=== PATIENT | male | born 1980 | race Caucasian/White ===

== ENCOUNTER 2020-05-12 10:00 | Inpatient (IN) | payer BC ==
[2020-05-05 14:26] LABS: BASOPHILS # (AUTO) 0.1 X10'3 (0-0.2); BASOPHILS % (AUTO) 0.9 % (0-1); EOSINOPHILS # (AUTO) 0.1 X10'3 (0-0.9); EOSINOPHILS % (AUTO) 1.4 % (0-6); LYMPHOCYTES # (AUTO) 3.3 X10'3 (1.1-4.8); LYMPHOCYTES % (AUTO) 30.7 % (21-51); MEAN CORPUSCULAR HEMOGLOBIN 29.1 PG (27.0-31.0); MEAN CORPUSCULAR HGB CONC 33.9 g/dL (33.0-36.5); MEAN CORPUSCULAR VOLUME 85.9 FL (78-98); MEAN PLATELET VOLUME 9.1 FL (7.4-10.4); MONOCYTES # (AUTO) 0.7 X10'3 (0-0.9); MONOCYTES % (AUTO) 6.1 % (2-12); NEUTROPHILS # (AUTO) 6.5 X10'3 (1.8-7.7); NEUTROPHILS % (AUTO) 60.9 % (42-75); PRE OP HEMOGLOBIN 15.2 g/dL (14.0-17.9); PRE OP PLATELET COUNT 234 X10'3 (140-440); RED BLOOD COUNT 5.23 X10'6 (4.70-6.10)
[2020-05-05 14:40] LABS: ALBUMIN 3.9 G/DL (3.4-5.0); ALBUMIN/GLOBULIN RATIO 1.2 (1.1-1.5); ALKALINE PHOSPHATASE 116 IU/L (46-116); BLOOD UREA NITROGEN 17 MG/DL (7-18); BUN/CREATININE RATIO 14.9 (5.4-32.0); CALCIUM 8.6 MG/DL (8.5-10.1); CHLORIDE 105 MMOL/L (99-107); CREATININE 1.14 MG/DL (0.60-1.10); PRE OP ALT 41 U/L (30-65); PRE OP ANION GAP 6 (8-16); PRE OP AST 18 U/L (10-37); PRE OP BILIRUB, TOTAL 0.3 MG/DL (0.0-1.0); PRE OP GLUCOSE 105 MG/DL (70-104); PRE OP POTASSIUM 3.7 MMOL/L (3.4-5.1); PRE OP SODIUM 139 MMOL/L (135-145); TOTAL CARBON DIOXIDE 27.8 MMOL/L (24-32); TOTAL PROTEIN 7.2 G/DL (6.4-8.2); eGFR 70 ML/MIN
[~2020-05-12] VITALS: Ht 177.8 cm; Wt 113.4 kg
[2020-05-12] VITALS (17 sets, daily range): BP systolic 98–182; BP diastolic 65–108
[~2020-05-12 10:00] MED LIST: DILT180C53 PO; PREG100C PO; cefazolin/dext.iso 2gm/50ml 50 ML IV ONE; famotidine 20mg tablet PO ONE; ringers solution, lacted 1,000 ML IV SCH; tranexamic acid inj. 1,100 MG in normal saline 100ml IV soln 100 ML IV ONE; vancomycin 1,500 MG in NS 300ml IV soln IV ONE
[2020-05-12] MEDS ORDERED: famotidine 10mg tablet PO ONE (10:15)
[2020-05-12] MEDS ORDERED: ketorolac trometh. 30mg/ml inj. ONE (12:02)
[2020-05-12] MEDS ORDERED: ROPIVAcaine 0.5% (5mg/ml) 30ml vial ONE ×2 (12:02→15:28)
[2020-05-12] MEDS ORDERED: tetracaine 1% (10mg/ml) pres. free inj. ONE (12:54)
[2020-05-12] MEDS ORDERED: fentaNYL/PF 50MCG/1 ML 2ML syringe ONE (12:55)
[2020-05-12] MEDS ORDERED: MIDAZolam 1mg/ml 10ml vial ONE (12:55)
[2020-05-12] MEDS ORDERED: proCHLORperazine 10 MG/2 ml inj IV PRN (14:35)
[2020-05-12] MEDS ORDERED: morphine 2 MG/ML inj. syringe IV PRN (14:35)
[2020-05-12] MEDS ORDERED: ringers solution, lacted 1,000 ML IV SCH (14:35)
[2020-05-12] MEDS ORDERED: ondansetron/PF 4mg/2ml inj IV PRN ×2 (14:35→15:55)
[2020-05-12] MEDS ORDERED: ROPIVAcaine 0.2%/PF PUMP/bolus 550 ML ADDCANAL SCH (14:35)
[2020-05-12] MEDS ORDERED: morphine 4 MG/ML inj SYRINge IV PRN (14:35)
[2020-05-12] MEDS ORDERED: ROPIVAcaine 0.2% (10 MG/5 ML) BOLUS INJECTION ADDCANAL PRN (14:35)
[2020-05-12] MEDS ORDERED: meperidine/PF 25mg/ml syringe IV PRN ×3 (14:35)
[2020-05-12] MEDS ORDERED: propofol inj 20 ML IV ONE ×2 (15:18→15:19)
--- NOTE | 2020-05-12 15:50 | NUR ---
Received from OR via , accompanied by Anesthesiologist DR JEAN and report given by Anesthesiolgist. AWAKE AND LUIS ANTONIO PAIN. VITALS STABLE. DRESSING DI. SENSATION JUST ABOVE THE HIPS. PEREZ WITH CLEAR URINE.
[2020-05-12] MEDS ORDERED: oxyCODONE IR 5mg (immed. release) tablet PO PRN (15:55)
[2020-05-12] MEDS ORDERED: bisacodyl 10mg suppository rectal RC PRN (15:55)
[2020-05-12] MEDS ORDERED: HYDROmorphone 1 mg/ml syringe IV PRN (15:55)
[2020-05-12] MEDS ORDERED: acetaminophen 325mg tablet PO PRN (15:55)
[2020-05-12] MEDS ORDERED: diphenhydrAMINE 25mg capsule PO PRN ×2 (15:55)
[2020-05-12] MEDS ORDERED: magnesium hydroxide 30ml (MOM) UD suspension PO PRN (15:55)
[2020-05-12] MEDS ORDERED: HYDROmorphone inj. 0.5 MG/0.5 ML DISP.SYRIN IV PRN (15:55)
[2020-05-12] MEDS ORDERED: ceFAZolin 1GM/D5W- ADD-VANTAGE 50 ML IV SCH (16:00)
[2020-05-12] MEDS: pregabalin 75mg capsule PO SCH ×2 (16:00→23:37)
--- NOTE | 2020-05-12 16:50 | NUR ---
Report called to receiving nurse. Transferred via BED Belongings . Special Issues communicated to receiving nurse. AWAKE AND ORIENTED. VITALS STABLE. DRESSING DI. LUIS ANTONIO PAIN. TO ORTHO RM [id number] AT THIS TIME.
--- NOTE | 2020-05-12 17:00 | NUR ---
Received report from SOFY Hagan in recovery and patient arrived to floor. pt reports no pain at this time, Post op vitals started, SCD's on, LR infusing at 100 cc/hr. will continue to monitor.
--- NOTE | 2020-05-12 18:49 | NUR ---
Problems reprioritized. Patient report given, questions answered & plan of care reviewed with SOFY Casas.
[2020-05-12] MEDS ORDERED: tranexamic acid inj. 1,130 MG in normal saline 100ml IV soln 100 ML IV ONE (19:00)
[2020-05-12] MEDS ORDERED: vancomycin/NS 1 GM ADD-VANTAGE 250 ML IV SCH (20:00)
[2020-05-12] MEDS: potassium cl 20mEq in 1/2 NS 1,000 ML IV SCH ×2 (20:10→23:55)
[2020-05-12] MEDS: acetaminophen 325mg tablet PO SCH (20:11)
[2020-05-12] MEDS: ceFAZolin 1GM/D5W- ADD-VANTAGE 50 ML IV SCH (20:11)
[2020-05-12] MEDS: diltiazem CD 180mg cap (once-daily) PO SCH (20:11)
[2020-05-12] MEDS: oxyCODONE IR 5mg (immed. release) tablet PO PRN (20:17)
[2020-05-12] MEDS ORDERED: sennosides 8.6mg tablet PO SCH (21:00)
[2020-05-13] MEDS: oxyCODONE IR 5mg (immed. release) tablet PO PRN ×4 (00:18→13:52)
[2020-05-13] MEDS: acetaminophen 325mg tablet PO SCH ×3 (01:39→14:38)
[2020-05-13 02:00] VITALS: BP 136/89
[2020-05-13] MEDS: ceFAZolin 1GM/D5W- ADD-VANTAGE 50 ML IV SCH (04:47)
[2020-05-13] MEDS: potassium cl 20mEq in 1/2 NS 1,000 ML IV SCH (04:47)
--- NOTE | 2020-05-13 05:02 | NUR ---
Pt home medications delivered to pharmacy to store until discharge.
[2020-05-13 06:00] VITALS: BP 152/89
--- NOTE | 2020-05-13 06:10 | NUR ---
received report from [facility]
[2020-05-13 06:16] LABS: ANION GAP 5 (8-16); CHLORIDE 102 MMOL/L (99-107); SODIUM 136 MMOL/L (135-145); TOTAL CARBON DIOXIDE 28.9 MMOL/L (24-32)
--- NOTE | 2020-05-13 06:16 | NUR ---
Report given to Pao GOETZ.
[2020-05-13 06:21] LABS: BASOPHILS # (AUTO) 0.1 X10'3 (0-0.2); BASOPHILS % (AUTO) 0.4 % (0-1); EOSINOPHILS # (AUTO) 0.1 X10'3 (0-0.9); EOSINOPHILS % (AUTO) 0.6 % (0-6); HEMATOCRIT 42.8 % (42.0-52.0); HEMOGLOBIN 14.5 g/dl (14.0-17.9); LYMPHOCYTES # (AUTO) 2.2 X10'3 (1.1-4.8); LYMPHOCYTES % (AUTO) 17.4 % (21-51); MEAN CORPUSCULAR HEMOGLOBIN 29.1 PG (27.0-31.0); MEAN CORPUSCULAR HGB CONC 33.8 g/dL (33.0-36.5); MEAN CORPUSCULAR VOLUME 86.1 FL (78-98); MEAN PLATELET VOLUME 9.2 FL (7.4-10.4); MONOCYTES # (AUTO) 1.2 X10'3 (0-0.9); MONOCYTES % (AUTO) 9.9 % (2-12); NEUTROPHILS # (AUTO) 8.9 X10'3 (1.8-7.7); NEUTROPHILS % (AUTO) 71.7 % (42-75); PLATELET COUNT 218 X10'3 (140-440); RED BLOOD COUNT 4.97 X10'6 (4.70-6.10); RED CELL DISTRIBUTION WIDTH 14.7 % (11.5-14.5); WHITE BLOOD COUNT 12.4 X10'3 (4.5-11.0)
[2020-05-13] MEDS ORDERED: aspirin 325mg tablet PO SCH (08:30)
[2020-05-13] MEDS: pregabalin 75mg capsule PO SCH (08:48)
[2020-05-13] MEDS: diltiazem CD 180mg cap (once-daily) PO SCH (08:52)
--- NOTE | 2020-05-13 10:34 | NUR ---
Patient walked to bathroom with one person assist and FWW, tolerated well
[2020-05-13 10:59] VITALS: BP 148/93
--- NOTE | 2020-05-13 14:30 | NUR ---
Joint Replacement Consult: Pt seen by RD for written/verbal high protein ed w/ RD contact information provided. Pt PO 100% protein and 25% starch at lunch today reports lower appetite post-op and is agreeable to blueberry canadian yogurt at 3pm for additional protein since pt reports will be returning home before dinner. Dietary notified. Pt reports having protein shakes at home for both pre and post-op. RD encouraged pt to contact dietitian's office if further questions. To f/u 05/17 for initial assessment. Addendum: 05/13/20 at [address] Amended: Links added.
--- NOTE | 2020-05-13 14:39 | NUR ---
physical therapy okayed pt for d/c home today
--- NOTE | 2020-05-13 15:52 | NUR ---
pt d/c with instructions, understanding of instructions and w/all belongings in wheelchair accompanied by nursing staff to private vehicle to go home and f/u w/surgeon
[2020-05-14] MEDS ORDERED: acetaminophen 325mg tablet PO PRN (15:55)
== END 2020-05-13 15:30 | disposition home or self-care (01) | DRG 470 ==
LOC: PAS 10:00 → EDSTATUS 12:30 → ORTHO 4S 15:54
PROVIDERS: ADMIT Orthopaedic Surgery; ATTEND Orthopaedic Surgery
PROC: 8E0YXBZ Computer Assisted Procedure of Lower Extremity (ICD-10-PCS; 2020-05-12)
PROC: 8E0Y0CZ Robotic Assisted Procedure of Lower Extremity, Open Approach (ICD-10-PCS; 2020-05-12)
PROC: 0SRD0J9 Replacement of Left Knee Joint with Synthetic Substitute, Cemented, Open Approach (ICD-10-PCS; principal; 2020-05-12 12:48)
PROC: 5A09357 Assistance with Respiratory Ventilation, Less than 24 Consecutive Hours, Continuous Positive Airway Pressure (ICD-10-PCS; 2020-05-13)
DX: M17.12 Unilateral primary osteoarthritis, left knee (principal); Z79.899 Other long term (current) drug therapy
CPT/HCPCS: 36415; 80051; 80053; 82948; 85025; 87081; 87635; 97110; 97116; 97161; 97530; G0378; J0690; J1885; J2250; J2405; J2704; J2795; J3010; J3370; J3480; J7040; J7120

== ENCOUNTER 2022-04-22 13:28 | Emergency (ER) | payer BC ==
[~2022-04-22] VITALS: Ht 175.3 cm; Wt 101.4 kg
[~2022-04-22 13:28] MED LIST changes: -cefazolin/dext.iso 2gm/50ml 50 ML IV ONE; -famotidine 20mg tablet PO ONE; -ringers solution, lacted 1,000 ML IV SCH; -tranexamic acid inj. 1,100 MG in normal saline 100ml IV soln 100 ML IV ONE; -vancomycin 1,500 MG in NS 300ml IV soln IV ONE
[2022-04-22 13:38] VITALS: BP 129/82
[2022-04-22] MEDS ORDERED: TETanus/Pertussis (Acell)/Diphther VAC/PF (Tdap-Adult) 0.5ml syringe IMVAC ONE (15:25)
[2022-04-22] MEDS ORDERED: amox tr/potassium clavulanate 875/125mg TAB PO ONE (15:25)
[2022-04-22] MEDS ORDERED: LIDOcaine 1% w/EPI 1:100,000 30ml vial (MDV) IJ ONE (15:30)
[2022-04-22] MEDS ORDERED: AMOX-117 PO (15:51)
[2022-04-22] MEDS ORDERED: OXYC-481 PO (17:42)
== END 2022-04-22 18:05 | disposition home or self-care (01) ==
LOC: ER 13:30
DX: K61.1 Rectal abscess (principal); I10 Essential (primary) hypertension; F12.90 Cannabis use, unspecified, uncomplicated; Z79.2 Long term (current) use of antibiotics; Z79.899 Other long term (current) drug therapy
CPT/HCPCS: 46040; 90471; 90715; 99284; A6449